=== PATIENT | female | born 1995 | race Caucasian/White ===

== ENCOUNTER 2019-06-02 07:07 | Emergency (ER) | payer OTHER, SELFPAY ==
[2019-06-02 07:11] VITALS: BP 138/76; PULSE 18; RESP 68; TEMP 36.3; O2SAT 97
[2019-06-02] MEDS: SODIUM CHLORIDE 0.9% IV 1,000 ML 150 ML IV CONT (07:28)
[2019-06-02 07:41] LABS: Basophils Absolute Auto 0.1 K/mm3 (0.0-0.1); Basophils Percent Auto 0.6 % (0.2-1.2); Eosinophils Absolute Auto 0.2 K/mm3 (0-0.3); Hemoglobin 12.9 g/dL (12.0-15.0); Immature Granulocyte Absolute 0.03 K/mm3 (0.00-0.031); Immature Granulocyte Percent A 0.3 % (0-0.5); Lymphocytes Absolute Auto 2.68 K/mm3 (0.9-3.2); Lymphocytes Percent Auto 31.1 % (18.3-44.2); Mean Corpuscular HGB Conc 32.3 g/dl (32-36); Mean Corpuscular Hemoglobin 30.8 pg (26-34); Mean Corpuscular Volume 95.5 fl (80-100); Mean Platelet Volume 10.5 fl (7.4-10.4); Monocytes Absolute Auto 0.6 K/mm3 (0.1-0.6); Monocytes Percent Auto 6.8 % (2.6-8.5); Neutrophils Absolute Auto 5.1 K/mm3 (1.3-6.7); Neutrophils Percent Auto 59.2 % (45.5-73.1); Platelet Count Result 235 k/mm3 (150-375); Red Blood Count 4.19 M/mm3 (4.2-5.4); White Blood Count 8.6 K/mm3 (4.5-10.0)
[2019-06-02 07:45] LABS: Add Urine Microscopic? YES; Appearance Urine Cloudy (Clear); Bacteria Urine Trace /hpf; Bilirubin Urine Negative (Negative); Blood Urine Negative (Negative); Color Urine Yellow (Yellow); Glucose Urine UA Negative (Negative); Ketones Urine Negative (Negative); Leukocyte Esterase Ur 2+ LEU/UL (Negative); Mucus Urine Rare /lpf; Nitrate Urine Negative (Negative); Protein Urine Negative (Negative); RBC Urine 0-2 /hpf (0-2); Specific Grav Ur 1.024 (1.001-1.035); Squamous Epithelial Cell Urine Many /hpf (Few); Urobilinogen Urine Negative mg/dL (<2.0); WBC Urine 0-3 /hpf
[2019-06-02 07:52] LABS: Alanine Aminotransferase 14 U/L (4-35); Albumin Level 4.4 g/dL (3.5-5.1); Alkaline Phosphatase 71 U/L (38-126); Aspartate Amino Transferase 23 U/L (14-36); Bilirubin,Total 0.3 mg/dL (0.2-1.3); Blood Urea Nitrogen 12 mg/dL (7-17); Carbon Dioxide 27 mmol/L (22-30); Chloride 100 mmol/L (98-107); Estimated CRCL calculation 136 ml/min; Estimated Glomerular Filt Rate > 60; Glucose 92 mg/dL (65-105); Potassium 4.1 mmol/L (3.4-5.0); Sodium 136 mmol/L (137-145)
--- NOTE | 2019-06-02 09:17 | ED.GENADULT ---
HPI - General Adult General Chief complaint: Nausea/Vomiting/Diarrhea Stated complaint: NAUSEA, BODY ACHES, SWEATS Time Seen by Provider: 06/02/19 07:12 Source: patient Mode of arrival: ambulatory Limitations: no limitations History of Present Illness HPI narrative: 24-year-old with no major medical problems here with complaints of nausea, vomiting abdominal cramping for past few days. She states that she has thrown up several times in the last 3 to 4 days, unable to keep fluids down. She also states that she has dry mouth. No history of fever or chills. Onset (ago): day(s) (3) Associated symptoms: nausea/vomiting Related Data Allergies Allergy/AdvReac Type Severity Reaction Status Date / Time Penicillins Allergy Rash Verified 06/02/19 07:15 Sulfa (Sulfonamide Allergy Difficulty Verified 06/02/19 07:15 Antibiotics) Breathing Review of Systems Constitutional: Constitutional: Reports no additional constitutional complaints Eyes: Eyes: Reports no additional eye complaints ENT: Reports system reviewed and no additional complaints, except as documented Cardiovascular: Cardiovascular: Reports no additional cardiovascular complaints Respiratory: Respiratory: Reports no additional respiratory complaints Gastrointestinal: Gastrointestinal: Reports as per HPI Musculoskeletal: Musculoskeletal: Reports no additional musculoskeletal complaints Neurologic: Reports system reviewed and no additional complaints, except as documented Exam Narrative: Exam Narrative: GENERAL: Well-appearing, well-nourished, and in no acute distress. HEAD: Normocephalic, atraumatic. EYES: PERRLA and EOMI. ENT: Nares clear, no rhinorrhea or epistaxis. Mucous membranes moist. NECK: Supple. CHEST: Clear to auscultation. No respiratory distress. HEART: Regular rate and rhythm. No murmur heard. Normal peripheral pulses. ABDOMEN: Soft, non tender, non distended, normal active bowel sounds. EXTREMITIES: Normal range of motion. No edema. SKIN: Warm, dry, no rash. NEURO: No focal deficits. Alert and oriented x3. PSYCH: Normal mood and affect. Course Course Emergency Course: Inform patient about her lab work. Patient was comfortably lying on the stretcher on the phone in no discomfort. I advised her to drink plenty of fluids take Zofran as needed. Vital Signs Vital signs: Vital Signs Temperature 36.3 C L 06/02/19 07:11 Pulse Rate 18 L 06/02/19 07:11 Respiratory Rate 68 H 06/02/19 07:11 Blood Pressure 138/76 06/02/19 07:11 Pulse Oximetry 97 06/02/19 07:11 Temperature 36.3 C L 06/02/19 07:11 Pulse Rate 18 L 06/02/19 07:11 Respiratory Rate 68 H 06/02/19 07:11 Blood Pressure 138/76 06/02/19 07:11 Pulse Oximetry 97 06/02/19 07:11 Medical Decision Making Vital Signs Vital Signs: Vital Signs Temperature 36.3 C L 06/02/19 07:11 Pulse Rate 18 L 06/02/19 07:11 Respiratory Rate 68 H 06/02/19 07:11 Blood Pressure 138/76 06/02/19 07:11 Pulse Oximetry 97 06/02/19 07:11 Temperature 36.3 C L 06/02/19 07:11 Pulse Rate 18 L 06/02/19 07:11 Respiratory Rate 68 H 06/02/19 07:11 Blood Pressure 138/76 06/02/19 07:11 Pulse Oximetry 97 06/02/19 07:11 Lab Data Result diagrams: 06/02/19 07:30 06/02/19 07:30 Labs: Lab Results 06/02/19 06/02/19 06/02/19 Range/Units 07:30 07:30 07:30 WBC 8.6 (4.5-10.0) K/mm3 RBC 4.19 L (4.2-5.4) M/mm3 Hgb 12.9 (12.0-15.0) g/dL Hct 40.0 (37.0-47.0) % MCV 95.5 (80-100) fl MCH 30.8 (26-34) pg MCHC 32.3 (32-36) g/dl RDW 12.0 (11.5-14.5) % Plt Count 235 (150-375) k/mm3 MPV 10.5 H (7.4-10.4) fl Immature Gran % (Auto) 0.3 (0-0.5) % Neut % (Auto) 59.2 (45.5-73.1) % Lymph % (Auto) 31.1 (18.3-44.2) % [place] % (Auto) 6.8 (2.6-8.5) % Eos % (Auto) 2.0 (0-4.4) % Baso % (Auto) 0.6 (0.2-1.2) % Lymph # (Auto) 2.68 (0.9-3.2) K/mm3 [place] # (Auto) 0.6 (0.1-
[2019-06-02 09:55] VITALS: BP 128/73; PULSE 68; RESP 19; O2SAT 100
--- NOTE | 2019-06-07 18:46 | PC.NURSE ---
LATE ENTRY This note is being entered to document information to the patient's record. The following information was omitted on [06/02/19], by [Sharon Belcher RN]. Patient's NS stop time was at [id number]
== END 2019-06-02 09:56 | disposition home or self-care (01) ==
PROVIDERS: Emergency Provider Family Medicine; PCP Nurse Practitioner Family
DX: K52.9 Noninfective gastroenteritis and colitis, unspecified (principal)
CPT/HCPCS: 36415; 80053; 81001; 85025; 87804; 96360; 99283; J7030

== ENCOUNTER 2020-02-25 06:55 | Outpatient (NON) | payer OTHER, SELFPAY ==
[2020-02-25 17:45] LABS: SARS-CoV-2 RNA PCR Negative
== END 2020-02-25 06:56 ==
LOC: ANHCOVIDDT 06:55
PROVIDERS: PCP Nurse Practitioner Family; Visit Provider Family Medicine
DX: Z20.828 Contact with and (suspected) exposure to other viral communicable diseases (principal); R50.9 Fever, unspecified
CPT/HCPCS: 87635; C9803; U0003

== ENCOUNTER 2020-08-02 10:34 | Emergency (ER) | payer OTHER, SELFPAY ==
[2020-08-02] VITALS (18 sets, daily range): BP systolic 104–134; BP diastolic 69–85; PULSE 60–91; RESP 12–21; TEMP 36.8; O2SAT 99–100
[2020-08-02] MEDS: diphenhydrAMINE HCl INJ 50 MG/ML VIAL 25 MG IM (10:48)
[2020-08-02] MEDS: predniSONE 20 MG TABLET 60 MG PO (10:54)
--- NOTE | 2020-08-02 11:14 | ED.GENADULT ---
HPI - General Adult General Chief complaint: Allergic Reaction Stated complaint: throat closing post vaccine Time Seen by Provider: 08/02/20 10:36 Source: patient Mode of arrival: ambulatory Limitations: no limitations History of Present Illness HPI narrative: Patient with history of anxiety presents with chief complaint of feeling as if her throat was closing after receiving a motor vaccination between 9 and 9:30 AM. Patient states that her symptoms began approximately 25 minutes after receiving the injection. Patient's mother gave her 25 mg of Benadryl just prior to arrival. Patient states that she is also allergic to sulfa and prednisone but has not had any allergies to any other medications. Patient not experience any diaphoresis, vomiting, flushing, tachycardia. Related Data Home Medications Medication Instructions Recorded Confirmed bupropion HCl mg PO 08/02/20 buspirone mg 08/02/20 Allergies Allergy/AdvReac Type Severity Reaction Status Date / Time Penicillins Allergy Rash Verified 06/02/19 07:15 Sulfa (Sulfonamide Allergy Difficulty Verified 06/02/19 07:15 Antibiotics) Breathing Review of Systems Review of Systems: Narrative: CONSTITUTIONAL: Denies fever, chills, or sweats. EYES: Denies visual changes, redness, or discharge. ENT: Reports throat symptoms denies rhinorrhea, congestion, sore throat, or otalgia. CARDIOVASCULAR: Denies chest pain, palpitations, or edema. RESPIRATORY: Denies cough or dyspnea. GASTROINTESTINAL: Denies abdominal pain, nausea, vomiting, or diarrhea. GENITOURINARY: Denies dysuria or hematuria. SKIN: Denies rash or itching. MUSCULOSKELETAL: Denies back pain, joint pain, or myalgia. NEUROLOGIC: Denies headache, numbness, dizziness, or weakness. PSYCHIATRIC: Denies anxiety or depression. Exam Narrative: Exam Narrative: GENERAL: Well-appearing, well-nourished, and in no acute distress. HEAD: Normocephalic, atraumatic. EYES: PERRLA and EOMI. ENT: Nares clear, no rhinorrhea or epistaxis. Mucous membranes moist. Oropharynx without tonsillar hypertrophy exudate or other lesions. Airway is patent without any erythema or lesions. Bilateral TMs pearly weber nonbulging NECK: Supple. No adenopathy or masses. Range of motion intact CHEST: Clear to auscultation. No respiratory distress. No wheezes rales or rhonchi HEART: Regular rate and rhythm. No murmur heard. Normal peripheral pulses. EXTREMITIES: Normal range of motion. No edema. SKIN: Warm, dry, no rash. NEURO: No focal deficits. Alert and oriented x3. PSYCH: Patient appears anxious. Course Vital Signs Vital signs: Vital Signs Temperature 98.2 F 08/02/20 10:56 Pulse Rate 90 08/02/20 10:56 Respiratory Rate 21 H 08/02/20 10:56 Blood Pressure 134/85 08/02/20 10:56 Pulse Oximetry 100 08/02/20 10:56 Temperature 98.2 F 08/02/20 10:56 Pulse Rate 90 08/02/20 10:56 Respiratory Rate 21 H 08/02/20 10:56 Blood Pressure 134/85 08/02/20 10:56 Pulse Oximetry 100 08/02/20 10:56 Medical Decision Making MDM Narrative Medical decision making narrative: Patient does not appear to have any extravasation of her airway. Patient appears to be very anxious. Patient states that she cannot talk however she is talking fluently without any issues. Patient is stating that she cannot breathe however patient is breathing well with appropriate oxygenation and without signs of wheezing or coarse lung sounds. Patient will be given Benadryl as prednisone due to her reported symptoms. I suspect is likely more anxiety than a vaccine reaction. Patient reports remittance of her symptoms. Patient states that she can breathe and swallow comfortably. She has been able to swallow fluids without any issues. Patient is handling her secretions appropriately and speaking appropriately without any difficulties or issues. Patient states she is ready to be discharged home. Patient will be given antihistamine. Patient instructed re
== END 2020-08-02 12:25 | disposition home or self-care (01) ==
PROVIDERS: Emergency Provider Emergency Medicine; PCP Nurse Practitioner Family
DX: T78.40XA Allergy, unspecified, initial encounter (principal)
CPT/HCPCS: 96372; 99283; J1200; J7512